=== PATIENT | female | born 1950 | race Hispanic/Latino ===

== ENCOUNTER → 2019-02-15 | Outpatient (CLI) | payer MEDICARE ==
--- NOTE | 2019-02-15 11:41 | Diagnostic Imaging Report ---
Exam: Nasal bone, 2 views History: Status post fall Comparison: None. Findings: No displaced nasal bone fracture. Soft tissues are intact without gross defect or subcutaneous gas. Partially visualized paranasal sinuses are well aerated. Impression: No displaced nasal bone fracture. Signed by: Dr. Brigido Newell M.D. on 02/15/2019 11:37 AM
--- NOTE | 2019-02-15 11:43 | Diagnostic Imaging Report ---
Exam: Facial bones 3 views History: Status post fall Comparison: None. Findings: No acute, displaced fractures or dislocations. Paranasal sinuses and mastoid air cells are well aerated. No focal soft tissue abnormalities. Impression: No displaced facial fractures or paranasal sinus opacification. Maxillofacial CT is much more sensitive for detection of subtle facial fractures and should be considered for further evaluation if clinically warranted. Signed by: Dr. Brigido Newell M.D. on 02/15/2019 11:40 AM
== END ==
LOC: RAD 10:50
PROVIDERS: ATTEND Internal Medicine
DX: S00.83XA Contusion of other part of head, initial encounter (principal); S00.33XA Contusion of nose, initial encounter; W19.XXXA Unspecified fall, initial encounter
CPT/HCPCS: 70150; 70160

== ENCOUNTER → 2019-02-23 | Outpatient (CLI) | payer MEDICARE ==
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
== END ==
LOC: CT 10:57
PROVIDERS: ATTEND Internal Medicine
DX: S02.2XXA Fracture of nasal bones, initial encounter for closed fracture (principal); W18.30XA Fall on same level, unspecified, initial encounter
CPT/HCPCS: 70486

== ENCOUNTER 2020-03-28 07:00 | Outpatient (RCR) | payer MEDICARE | END 2020-04-11 | LOC: PT 07:00 | PROVIDERS: ATTEND Specialist | DX: M47.812 Spondylosis without myelopathy or radiculopathy, cervical region (principal); M53.82 Other specified dorsopathies, cervical region ==

== ENCOUNTER 2020-10-05 12:00 | Emergency (ER) | payer MEDICARE ==
[~2020-10-05] VITALS: Ht 152.4 cm; Wt 80.7 kg
[2020-10-05] MEDS ORDERED: IBUPROFEN 600 MG TAB PO STA (12:05)
[2020-10-05] MEDS ORDERED: HYDROCODONE/APAP 7.5MG-325MG 1 EA TAB PO ONE (12:15)
[2020-10-16] MEDS ORDERED: VITAMIN D310 MCG PO (15:43)
[2020-10-16] MEDS ORDERED: VITAMIN C1000 MG PO (15:43)
== END 2020-10-05 13:47 | disposition home or self-care (01) ==
LOC: ER 12:51
DX: S52.502A Unspecified fracture of the lower end of left radius, initial encounter for closed fracture (principal); S52.612A Displaced fracture of left ulna styloid process, initial encounter for closed fracture; W01.0XXA Fall on same level from slipping, tripping and stumbling without subsequent striking against object, initial encounter; Y93.01 Activity, walking, marching and hiking; Y92.008 Other place in unspecified non-institutional (private) residence as the place of occurrence of the external cause
CPT/HCPCS: 99284

== ENCOUNTER → 2020-10-17 | Day surgery (SDC) | payer MEDICARE ==
[2020-10-16 16:08] LABS: BASOPHILS # (AUTO) 0.1 (0.0-0.1); BASOPHILS % 0.5 % (0.0-1.0); EOSINOPHILS # (AUTO) 0.2 (0.0-0.4); EOSINOPHILS % 1.4 % (0.0-6.0); HEMATOCRIT 39.2 % (34.2-44.1); HEMOGLOBIN 12.7 g/dL (12.0-16.0); LYMPHOCYTES # (AUTO) 3.1 (1.0-3.2); LYMPHOCYTES % 25.1 % (18.0-39.1); MEAN CORPUSCULAR HEMOGLOBIN 29.7 pg (28-32); MEAN CORPUSCULAR HGB CONC 32.4 g/dL (31-35); MEAN CORPUSCULAR VOLUME 91.6 fL (81-99); MONOCYTES # (AUTO) 0.8 (0.2-0.8); MONOCYTES % 6.4 % (4.4-11.3); NEUTROPHILS # (AUTO) 8.2 (2.1-6.9); NEUTROPHILS % 66.3 % (38.7-80.0); PLATELET COUNT 348 x10e3/uL (140-360); RED BLOOD COUNT 4.28 x10e6/uL (3.6-5.1); RED CELL DISTRIBUTION WIDTH 13.6 % (11.7-14.4)
[~2020-10-17] MED LIST: ACETAMINOPHEN/CODEINE 300MG - 30MG TAB ONE; BUPIVACAINE HCL 0.5% INJ 30 ML VIAL INJ ONE; CEFAZOLIN SOD 1 GM/NS 50ML 50 ML IV ONE; DEXAMETHASONE SOD PHOS INJ 4 MG/ML VIAL ONE; FENTANYL CITRATE/PF 100MCG/2 ML INJ ONE; HYDROMORPHONE 1MG/1ML INJ ONE; KETOROLAC TROMETHAMINE 30 MG/ML VIAL ONE; LIDOCAINE HCL 2% LOCAL INJ 5 ML SDV VIAL INJ ONE; MIDAZOLAM HCL 2 MG/2 ML VIAL ONE; ONDANSETRON HCL 4 MG ORAL DISINTEGRATING TAB ONE; ONDANSETRON HCL INJ 2MG/ML 2ML 2 MG/ML VIAL ONE; PROPOFOL IV EMULSION 10 MG/ML 20 ML VIAL ONE; SEVOFLURANE INHAL SOLN 250 ML PEN BTL ONE; VITAMIN C1000 MG PO; VITAMIN D310 MCG PO
[2020-10-17 11:30] VITALS: BP 152/85
== END | disposition home or self-care (01) ==
LOC: OR 06:45
PROVIDERS: ATTEND Specialist
DX: S52.532A Colles' fracture of left radius, initial encounter for closed fracture (principal); K21.9 Gastro-esophageal reflux disease without esophagitis; W01.0XXA Fall on same level from slipping, tripping and stumbling without subsequent striking against object, initial encounter; Y92.009 Unspecified place in unspecified non-institutional (private) residence as the place of occurrence of the external cause; Z01.810 Encounter for preprocedural cardiovascular examination; Z01.812 Encounter for preprocedural laboratory examination; Z01.818 Encounter for other preprocedural examination; Z20.822 Contact with and (suspected) exposure to COVID-19; Z68.30 Body mass index [BMI] 30.0-30.9, adult
CPT/HCPCS: 25607; 36415; 71046; 85025; 93005; C1713 ×10; C1769; J0690; J1100; J1170; J1885; J2001; J2250; J2405; J2704; J3010; Q0162; U0002; 76000

== ENCOUNTER 2022-02-18 05:40 | Observation (INO) | payer MEDICARE, OTHER ==
[~2022-02-18] VITALS: Ht 157.5 cm; Wt 83.0 kg
[~2022-02-18 05:40] MED LIST changes: -ACETAMINOPHEN/CODEINE 300MG - 30MG TAB ONE; -BUPIVACAINE HCL 0.5% INJ 30 ML VIAL INJ ONE; -CEFAZOLIN SOD 1 GM/NS 50ML 50 ML IV ONE; -DEXAMETHASONE SOD PHOS INJ 4 MG/ML VIAL ONE; -FENTANYL CITRATE/PF 100MCG/2 ML INJ ONE; -HYDROMORPHONE 1MG/1ML INJ ONE; -KETOROLAC TROMETHAMINE 30 MG/ML VIAL ONE; +LEVOTHYROXINE50 MCG PO; -LIDOCAINE HCL 2% LOCAL INJ 5 ML SDV VIAL INJ ONE; -MIDAZOLAM HCL 2 MG/2 ML VIAL ONE; -ONDANSETRON HCL 4 MG ORAL DISINTEGRATING TAB ONE; -ONDANSETRON HCL INJ 2MG/ML 2ML 2 MG/ML VIAL ONE; -PROPOFOL IV EMULSION 10 MG/ML 20 ML VIAL ONE; -SEVOFLURANE INHAL SOLN 250 ML PEN BTL ONE
[2022-02-18] MEDS ORDERED: CELECOXIB 200 MG CAP ONE (06:41)
[2022-02-18] MEDS ORDERED: GABAPENTIN 300 MG CAP ONE (06:42)
[2022-02-18] MEDS ORDERED: DEXAMETHASONE SOD PHOS 10 MG/1 ML VIAL ONE (06:42)
[2022-02-18] MEDS ORDERED: TRANEXAMIC ACID 20 ML ONE (06:52)
[2022-02-18] MEDS ORDERED: Vancomycin IV 1,000 MG ONE (06:52)
[2022-02-18] MEDS ORDERED: SODIUM CHLORIDE 0.9% 500ML 500 ML ONE (06:53)
[2022-02-18] MEDS ORDERED: ROPIVACAINE 246.25 MG, EPINEPHRINE HCL 1:1000 1ML 0.5 MG, CLONIDINE HCL 0.08 MG, KETORO... INJ ONE ×5 (07:30)
[2022-02-18] MEDS ORDERED: ONDANSETRON HCL INJ 2MG/ML 2ML 2 MG/ML VIAL IV PRN (08:45)
[2022-02-18] MEDS ORDERED: HYDROCODONE/APAP 5MG-325MG TAB PO PRN (08:45)
[2022-02-18] MEDS ORDERED: DIPHENHYDRAMINE HCL INJ 50 MG/ML VIAL IV PRN (08:45)
[2022-02-18] MEDS ORDERED: KETOROLAC TROMETHAMINE 30 MG/ML VIAL IV PRN (08:45)
[2022-02-18] MEDS ORDERED: ACETAMINOPHEN 650 MG SUPP PR PRN (08:45)
[2022-02-18] MEDS ORDERED: HYDROCODONE/APAP 7.5MG-325MG 1 EA TAB PO PRN (08:45)
[2022-02-18] MEDS ORDERED: DOCUSATE SODIUM 100 MG CAP PO PRN (08:45)
[2022-02-18] MEDS ORDERED: ZOLPIDEM TARTRATE 5 MG TAB PO PRN (08:45)
[2022-02-18] MEDS ORDERED: FENTANYL CITRATE/PF 100MCG/2 ML INJ ONE ×2 (09:16→12:20)
[2022-02-18] MEDS ORDERED: HYDROMORPHONE 1MG/1ML INJ ONE (09:24)
[2022-02-18 10:09] VITALS: BP 150/72
[2022-02-18 10:10] VITALS: BP 150/72
[2022-02-18 10:12] VITALS: BP 150/72
[2022-02-18] MEDS ORDERED: SODIUM CHLORIDE 0.9% 1000ML 1,000 ML IV SCH (11:00)
[2022-02-18 11:44] VITALS: BP 135/75
[2022-02-18] MEDS ORDERED: ROPIVACAINE 0.5% 5 MG/ML 30 ML SDV ONE (12:10)
[2022-02-18] MEDS ORDERED: MIDAZOLAM HCL 2 MG/2 ML VIAL ONE (12:20)
[2022-02-18] MEDS: ASPIRIN 325 MG TAB PO SCH ×2 (12:29→16:26)
[2022-02-18] MEDS ORDERED: LIDOCAINE HCL 2% LOCAL INJ 5 ML SDV VIAL INJ ONE (13:04)
[2022-02-18] MEDS ORDERED: PROPOFOL IV EMULSION 10 MG/ML 20 ML VIAL ONE (13:04)
[2022-02-18] MEDS ORDERED: POVIDONE IODINE 0.05% 0.05 % ML PO ONE (13:04)
[2022-02-18] MEDS ORDERED: SEVOFLURANE INHAL SOLN 250 ML PEN BTL ONE (13:04)
[2022-02-18] MEDS ORDERED: ACETAMINOPHEN 1000 MG/100 ML IV ONE (13:04)
[2022-02-18] MEDS ORDERED: ONDANSETRON HCL INJ 2MG/ML 2ML 2 MG/ML VIAL ONE (13:04)
[2022-02-18] MEDS ORDERED: KETOROLAC TROMETHAMINE 30 MG/ML VIAL ONE (13:04)
[2022-02-18 16:24] VITALS: BP 158/87
[2022-02-18] MEDS ORDERED: CELECOXIB 200 MG CAP PO SCH (17:00)
[2022-02-19] MEDS ORDERED: ACETAMINOPHEN 1000 MG/100 ML IV PRN (08:45)
== END 2022-02-18 18:53 | disposition home health service (06) ==
LOC: OR 05:40 → PACU V 08:43 → MED/SURG 09:47
PROVIDERS: ADMIT Specialist; ATTEND Specialist
DX: M17.0 Bilateral primary osteoarthritis of knee (principal); E66.3 Overweight; R06.00 Dyspnea, unspecified; I20.8 Other forms of angina pectoris; Z01.810 Encounter for preprocedural cardiovascular examination; E78.5 Hyperlipidemia, unspecified; M81.0 Age-related osteoporosis without current pathological fracture; E03.9 Hypothyroidism, unspecified; Z68.35 Body mass index [BMI] 35.0-35.9, adult; Z20.822 Contact with and (suspected) exposure to COVID-19
CPT/HCPCS: 71046; 86850; 86900; 86920; 94799; C1713; C1776; G0378; J0171; J0690; J1100; J1170; J1885; J2001; J2250; J2405; J2795; J3010; J3370; J7030; J7040; U0002

== ENCOUNTER 2025-05-20 11:12 | Observation (INO) | payer MEDICARE ==
[2025-05-17 09:37] LABS: BASOPHILS % 0.9 % (0.0-1.0); EOSINOPHILS % 6.8 % (0.0-6.0); LYMPHOCYTES % 32.0 % (18.0-39.1); MONOCYTES % 7.8 % (4.4-11.3); NEUTROPHILS % 52.1 % (38.7-80.0); RED CELL DISTRIBUTION WIDTH 14.0 % (11.7-14.4)
[2025-05-17 10:23] LABS: EST GLOMERULAR FILTRATION RATE 79.0 ML/MIN (>=60)
[~2025-05-20] VITALS: Ht 162.6 cm; Wt 79.4 kg
[~2025-05-20 11:12] MED LIST changes: +AMLODIPINE BESYL5 MG PO; +JOINT COMFORT-1 EACH PO; +LOSARTAN POTASS25 MG PO; +OMEGA 3 1,0001 EACH PO
[2025-05-20] MEDS ORDERED: PROPOFOL IV EMULSION 10 MG/ML 20 ML VIAL ONE (12:11)
[2025-05-20] MEDS ORDERED: LIDOCAINE HCL 2% LOCAL INJ 5 ML SDV VIAL INJ ONE (12:11)
[2025-05-20] MEDS ORDERED: FENTANYL CITRATE/PF 100MCG/2 ML INJ ONE (13:35)
[2025-05-20] MEDS ORDERED: ONDANSETRON HCL INJ 2MG/ML 2ML 2 MG/ML VIAL ONE (13:43)
[2025-05-20] MEDS ORDERED: ACETAMINOPHEN 1000 MG/100 ML 100 ML IV ONE (13:43)
[2025-05-20] MEDS ORDERED: SEVOFLURANE INHAL SOLN 250 ML PEN BTL ONE (13:43)
[2025-05-20] MEDS ORDERED: DEXAMETHASONE SOD PHOS INJ 4 MG/ML SDV ONE (13:43)
[2025-05-20] MEDS: LACTATED RINGER'S 1,000 ML ONE (13:52)
[2025-05-20] MEDS ORDERED: PHENYLEPHRINE HCL 1% 10 MG/ML VIAL ONE (14:04)
[2025-05-20] MEDS ORDERED: SODIUM CHLORIDE 0.9% INJ 10 ML VIAL ONE (14:04)
[2025-05-20] MEDS ORDERED: ACETAMINOPHEN 1000 MG/100 ML IV PRN (14:45)
[2025-05-20] MEDS ORDERED: HYDROMORPHONE 1MG/1ML INJ IV PRN (14:45)
[2025-05-20] MEDS ORDERED: ONDANSETRON HCL INJ 2MG/ML 2ML 2 MG/ML VIAL IV PRN (14:45)
[2025-05-20 16:00] VITALS: BP 130/65; PULSE 88; RESP 18; TEMP 98.4; O2SAT 100
[2025-05-20] MEDS: SODIUM CHLORIDE 0.9% 1000ML 1,000 ML IV SCH (16:34)
[2025-05-20 16:57] VITALS: BP 130/65; PULSE 88; RESP 18; TEMP 98.4; O2SAT 100
[2025-05-20] MEDS: AMLODIPINE BESYLATE 5 MG TAB PO SCH (20:54)
[2025-05-20 21:05] VITALS: BP 137/76; PULSE 88; RESP 16; TEMP 98.6; O2SAT 100
[2025-05-21 08:11] VITALS: BP 135/68; PULSE 90; RESP 18; TEMP 98.4; O2SAT 97
[2025-05-21 08:15] VITALS: BP 135/68; PULSE 90; RESP 18; TEMP 98.4; O2SAT 97
[2025-05-21] MEDS: HYDROCODONE/APAP 7.5MG-325MG 1 EA TAB PO PRN (08:18)
[2025-05-21] MEDS: LOSARTAN POTASSIUM 25 MG TAB PO SCH (08:21)
[2025-05-21 11:49] VITALS: BP 126/79; PULSE 77; RESP 18; TEMP 98.2; O2SAT 98
== END 2025-05-21 15:50 | disposition home or self-care (01) ==
LOC: OR 11:12 → PACU V 14:33 → MED/SURG 16:08 → MED/SURG2 22:54
PROVIDERS: ADMIT Surgery; ATTEND Surgery
DX: K64.5 Perianal venous thrombosis (principal); K62.3 Rectal prolapse; I10 Essential (primary) hypertension; E03.9 Hypothyroidism, unspecified; E78.5 Hyperlipidemia, unspecified; E66.9 Obesity, unspecified; Z01.810 Encounter for preprocedural cardiovascular examination; Z01.812 Encounter for preprocedural laboratory examination; Z01.818 Encounter for other preprocedural examination
CPT/HCPCS: 36415; 45541; 46260; 71046; 80053; 85025; 88304; 93005; G0378 ×2; J0131; J0694; J1100; J2003; J2371; J2405; J2704; J3010; J7030; J7121